=== PATIENT | male | born 1960 | race Caucasian/White ===

== ENCOUNTER → 2024-05-20 10:00 | Outpatient (REF) | payer OTHER, SELFPAY ==
--- NOTE | 2024-04-22 10:23 | PN.DIAED02 ---
Addendum entered by Savannah Russell RN 04/22/24 10:54:
Mr. Ash presented for his initial assesement for the May 2024, evening DSME course. He will be attending with his . Mr. Ash was recently diagnosed 6 months ago with type 2 diabetes and saw a front office specialist at work for assistance
with meal planning. His most recent A1c was 7.4 % in March, and his primary care started him on Metformin 500 mg daily. I reviewed basic diabetes management and provided written material on target blood glucose ranges. He demonstrated proper
technique with doing a fingerstick blood glucose with the Contour Next EZ glucometer. Dawson plans to contact his insurance company to see if he is eligible for a continuos glucose monitor and we discussed the different options. He will contact the
office with any questions or concerns prior to starting the May course.
Original Note:
Referral
DSME Class Series Code: [id number]
Referred For: Diabetes Self-Management Training, Medical Nutrition Therapy, Self-Blood Glucose Monitoring, Long-Term Complication Instruction, Accute Complication Instruction, Continuous Glucose Monitoring, Medication management, Care Coordination,
Disease Management
PHI Release Authorization Form Signed: Yes
Demographic
(1) Type 2 diabetes mellitus without complications
Status: Acute Code(s): E11.9 - Type 2 diabetes mellitus without complications
Patient's primary language-: Kosovan
Education: College degree
Occupation: Professional
Hours Worked/Week: > 40
- Social
Primary Support Person: Self
Primary Care Takers: Self
Living Arrangements: Self & spouse (Mrs. Ash will be attending the DSME program)
- Learning Methods
Preferred Method: Hands-on demonstration
Glycemic Control
- Blood Glucose Monitoring Assessment
Date: 03/25/24 (FBS: 170 mg/dL)
Blood glucose monitoring at home: No (Trained Dawson on a Contour Next EZ glucometer)
- Hyperglycemia Assessment
Experiences Hyperglycemia: Yes ( feels thirsty)
Frequency: 1-3x per week
Hitory of DKA/HHS: No
- Hypoglycemia Assessment
Patient carries glucose source: No
Patient experiences hypoglycemia: No (taking Metformin 500 mg daily)
- Hemoglobin A1c
Date: 03/25/24
A1C Percentage (%): 7.4
Medical History of Diabetes
Previous Diabetes Education: No
Previous visit with Dietitian: Yes
How long ago?: 1-5 years ago (met with a dietican at work once blood glucose levels started increasing)
Current Home Medication
- Insulin Management
Patient adjusts own insulin dosages: No (Metformin 500 mg daily)
Measures
- Anthropometrics
Height: 6 ft
Actual Weight: 183 lb 6.4 oz
- Blood Pressure / Pulse
Blood pressure: 131/74
Pulse: 65
- Diabetes Management
Medical Management for Diabetes: Complete physical exam (02/12/2024), Dilated eye exam (03/2024), Flu Vaccination (02/2024)
Self-Care
- Tobacco Usage
Do you now, or have you ever smoked?: Never smoked
- Alcohol & Drugs Usage
Drinks Alcohol: Yes
Amount/day: Social Occasions
- Meals & Dining
Meals & Dining: Patient skips meals: No, Food Intolerance / Allergy: No, Cultural / Latter-Day Dietary Needs: No
Primary Food Commercial Food Instructor: Spouse
Primary Board Winder: Self & Spouse
Dining Out Frequency: 1-3x per week
- Physical Activity
Physical Limitation: No
Patient participates in physical Activity: Yes
Activity Types: Aerobics, Strength training
Duration: 31-40 minutes (3 to 4 times per week)
Intensity: Moderate
- Self Foot-Care
Foot Problems: None
Performs Self Foot-Exam: No (will schedule podiatry vist)
- Patient-Self Assessment
Diabetes Knowledge: Fair
Feelings About Diabetes: Overwhelmed / Confused
Importance of Health: Extremely
Stress Level: Low
Diabetes Interferes With:: Family/social activities
Barriers to Diabetes Management: Nothing
Depression Survey Score: 1
- Diabetes Identification
Carries Diabetes Identification: No
--- NOTE | 2024-04-22 10:46 | PN.DIAED04 ---
Education Record
- Education Record
Class Attended: Other (Initial DSME assessment)
Instructor: Nurse Practitioner (BRITTNI Lyon)
Pre-Test Score (%): 68
Goals
- Goal 1
Being Active: Exercise 30 minutes-5 times per week (Add another day and start to increase intensity)
Goals To Be Evaluated: Exercise 30 mins-5x/week
- Goal 2
Healthy Eating: Follow meal plan
Goals To Be Evaluated: Follow meal plan
- Goal 3
Monitoring: Follow monitoring schedule
Goals To Be Evaluated: Follow monitoring times
--- NOTE | 2024-05-21 15:39 | PN.DIAED14 ---
This is to notify you that your patient with diabetes, MARTHA HACKETT ( 1960), has enrolled in our diabetes self-management classes that are being held at [facility].
These classes will include an introduction to diabetes, diet, medication, exercise and prevention of complications. At the end of our class series, you will receive a report of your patient's participation and progress for your records.
Please contact me at the [facility], , if there is any particular information regarding your patient that might be helpful to me.
Sincerely,
Jose Enrique ELKINS-MAI,[facility] [place]
--- NOTE | 2024-05-21 15:40 | PN.DIAED04 ---
<Chichi Doll - Last Filed: 05/21/24 15:40>
Education Record
- Education Record
Class Attended: Class 1
DSME Class Series Code: [id number]
Instructor: Nurse Practitioner (BRITTNI Lyon)
Class Length (mins): 120
Post-Class 1 Test Score (%): 100
<Suzan Goodman - Last Filed: 05/21/24 16:19>
Education Record
- Education Record
Class Curriculum:
Outpatient Diabetes Education Program:
Class 1 (120 minutes)
Describe the diabetes disease process and treatment options
Diabetes management
Develop personal strategies to promote health and behavior change
Integrate psychosocial adjustment for daily living
Monitor blood glucose and other parameters. Interpret and use the results for self-management decision making
Prevent, detect, and treat acute complications
== END ==
LOC: DES 10:00
PROVIDERS: ATTENDING PHYSICIAN Internal Medicine
DX: E11.9 Type 2 diabetes mellitus without complications (principal)
CPT/HCPCS: 99078

== ENCOUNTER → 2024-05-27 14:02 | Outpatient (REF) | payer OTHER, SELFPAY | LOC: DES 14:02 | PROVIDERS: ATTENDING PHYSICIAN Internal Medicine | DX: E11.9 Type 2 diabetes mellitus without complications (principal) | CPT/HCPCS: 99078 ==

== ENCOUNTER → 2024-06-03 11:24 | Outpatient (REF) | payer OTHER, SELFPAY | LOC: DES 11:24 | PROVIDERS: ATTENDING PHYSICIAN Internal Medicine | DX: E11.9 Type 2 diabetes mellitus without complications (principal) | CPT/HCPCS: 99078 ==

== ENCOUNTER → 2024-06-10 08:43 | Outpatient (REF) | payer OTHER, SELFPAY ==
--- NOTE | 2024-06-11 10:40 | PN.DIAED04 ---
Education Record
- Education Record
Class Attended: Class 4
DSME Class Series Code: [id number]
Instructor: Nurse Practitioner (BRITTNI Lyon)
Class Curriculum:
Outpatient Diabetes Education Program:
Class 4 (120 minutes)
Develop personal strategies to promote health and behavior change
Incorporate physical activity into lifestyle
Utilize medications safety for maximum therapeutic effectiveness
Understand different medication/insulin mechanism of action
Preparing for travel
Class Length (mins): 120
Post-Class 4 Test Score (%): 100
== END ==
LOC: DES 08:43
PROVIDERS: ATTENDING PHYSICIAN Internal Medicine
DX: E11.9 Type 2 diabetes mellitus without complications (principal)
CPT/HCPCS: 99078

== ENCOUNTER → 2024-06-17 13:22 | Outpatient (REF) | payer OTHER, SELFPAY ==
--- NOTE | 2024-06-19 12:16 | PN.DIAED16 ---
This is to notify you that your patient with diabetes, MARHTA HACKETT ( 1960), has attended the entire series of Diabetes Self-Management Education Classes.
Class 1 (120 minutes): Diabetes Overview - monitoring, stress/psychosocial adjustment, support, goal setting
Class 2 (120 minutes): Meal Planning - serving sizes, menu plans
Class 3 (120 minutes): Introduction to Carbohydrate Counting, Analyzing Food Labels
Class 4 (120 minutes): Medication, Exercise and Activity
Class 5 (120 minutes): Sick Day Management, Strategies to Reduce Complications, Problem Solving, Resources
The following behavioral goals were identified:
Exercise 30 mins-5x/week
Follow meal plan
Follow monitoring times
A follow-up call will be made within three to six months to evaluate attainment of these goals and to check post-program Hemoglobin A1c and overall progress. All class participants are encouraged to contact me if I can be any further assistance in
learning how to manage their diabetes.
Sincerely,
Jose Enrique ELKINS-, [facility]
== END ==
LOC: DES 13:22
PROVIDERS: ATTENDING PHYSICIAN Internal Medicine
DX: E11.9 Type 2 diabetes mellitus without complications (principal)
CPT/HCPCS: 99078